=== PATIENT | male | born 1985 | race American Indian/Alaskan Native ===

== ENCOUNTER 2018-05-29 12:32 | Emergency (ER) | payer MEDICARE ==
--- NOTE | 2018-05-29 13:06 | Emergency Department Report ---
ED Laceration HPI - HPI Chief Complaint: Wound/Laceration Stated Complaint: CUT FOOT Occurred When: Today Location: Lower Extremity (left ankle) Severity: moderate Tetanus Status: Up to Date Laceration Symptoms: No Foreign Body Sensation, No Numbness, No Weakness, No Pain Other History: This is a 32-year-old -[place] male who presents with left ankle is swelling and pain from sustained injury 1 week ago. Past medical history of hypertension, congenital heart, disease, CVA, varicose veins, and defibrilator. He noticed a small wound to left ankle 1 week ago which healed with scab formation. 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 He wrapped with all to obtain a 2 stopped bleeding and was successful. Patient states he takes somewhere else well for congenital heart disease. He has been off medication for 3-4 weeks. His job called EMS who brought him over for evaluation. There is a swelling from left sal to left foot. Patient denies numbness or tingling, pain, recent injury, fever. ED Review of Systems ROS: Stated complaint: CUT FOOT Other details as noted in HPI Constitutional: denies: chills, fever Respiratory: denies: cough, shortness of breath, wheezing Cardiovascular: denies: chest pain, palpitations Gastrointestinal: denies: abdominal pain, nausea, diarrhea Skin: lesions (left ankle). 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 - Social History Smoking Status: Never Smoker Substance Use Type: None - Medications Home Medications: Home Medications Medication Instructions Recorded Confirmed Last Taken Type Sulfamethoxazole/Trimethoprim 1 each PO BID #20 tablet 05/29/18 Unknown Rx [Bactrim DS TAB] Laceration Physical Exam - Exam General: Vital signs noted. No distress. Alert and acting appropriately. Wound Length (cm): 1 (a half a centimeter) Laceration Location: Lower Extremity (left ankle) Full Body Front + Back: 1 - Half centimeter abrasion, active bleeding, surrounding cellulitis and warmth Laceration Exam: Yes Normal Distal CMS, No Foreign Body, No Exposed Tendon, Vessel, or Nerve, No Tendon Injury ED Course Vital Signs 05/29/18 12:35 Temperature 99.2 F Pulse Rate 60 Respiratory 16 Rate Blood Pressure 142/73 O2 Sat by Pulse 96 Oximetry ED Medical Decision Making - Radiology Data Radiology results: report reviewed, image reviewed VASCULAR LAB.PRELIMINARY REPORT. LLE VENOUS DUPLEX DONE. NO EVIDENCE OF DVT/SVT IN VESSELS VISUALIZED. - Medical Decision Making Patient was examined by me and Dr. Blum. Vitals are normal and patient is in no acute distress. Obtained a duplex Doppler of left lower extremity. VASCULAR LAB.PRELIMINARY REPORT. LLE VENOUS DUPLEX DONE. NO EVIDENCE OF DVT/SVT IN VESSELS VISUALIZED. Patient informed of results. There where 2 attempts to close wound via sutures that where unsuccessful. Skins is very friable. I applied Dermabond with pressure dressing. Start bactrim for cellulitis to left lower extremity. Plan discussed with patient to discharge home and treat outpatient. He agrees with ER plan. Referral to vascular surgery for further evaluation. Patient discharged home in stable condition. Follow up with PCP in 2-3 days. Critical care attestation.: If time is entered above; I have spent that time in minutes in the direct care of this critically ill patient, excluding procedure time. ED Disposition Clinical Impression: Cellulitis of left ankle Open wound of left ankle with complication Qualifiers: Encounter type: initial encounter Qualified Code(s): S91.002A - Unspecified open wound, left ankle, initial encounter Varicose vein of leg Qualifiers: Varicose vein complication: both inflammation and ulcer Laterality: left Lower extremity ulceration location: ankle Non-pressure ulcer stage: limited to breakdown of skin Qualified Code(s): I83.223 - Varicose veins of left lower extremity with both ulcer of ankle and inflammation; L97.321 - Non-pressure chronic ulcer of left ankle limited to breakdown of skin Disposition: DC-01 TO HOME OR SELFCARE Is pt being admited?: No Does the pt Need Aspirin: No Condition: Stable Instructions: Cellulitis (ED), Acute Wound Care (ED), Varicose Veins (ED) Additional Instructions: Complete full round of bactrim DS antibiotic as prescribed. Follow up with vascular surgery in 2-3 days. Return to ER if foul smelling discharge, heavy bleeding from wound, swelling, or severe pain to wound. Prescriptions: Sulfamethoxazole/Trimethoprim [Bactrim DS TAB] 1 each PO BID #20 tablet Referrals: MANOLO ALEJANDRO MD [Staff Physician] - 3-[address] [facility] [Outside] - 3-5 Days [facility] [Outside] - 3-5 Days Forms: Work/School Release Form(ED) Time of Disposition: 17:06 Print Language: PRYDEINIG
[2018-05-29] MEDS ORDERED: XYLOCAINE 2%/EPI 1:100,000 INFILTRATI ONE (14:35)
[2018-05-29] MEDS ORDERED: XYLOCAINE 1% MPF 5 mL ONE (14:38)
[2018-05-29] MEDS ORDERED: XYLOCAINE 2%/ EPI 1:200,000 INFILTRATI ONE (14:39)
[2018-05-29 17:35] VITALS: BP 133/72
--- NOTE | 2018-06-03 13:56 | Vascular Lab Report ---
LOWER EXTREMITY VENOUS DUPLEX: REASON FOR EXAM: Pain and swelling of the lower extremities. COMMENTS ON THE RIGHT: All veins visualized are freely compressible without evidence of internal echogenicity. Flow is spontaneous and phasic throughout. COMMENTS ON THE LEFT: All veins visualized are freely compressible without evidence of internal echogenicity. Flow is spontaneous and phasic throughout. The cluster varicose veins is seen near the left ankle. IMPRESSION: No evidence of acute or chronic deep venous thrombosis in either lower extremity. A cluster varicose veins are seen near the left ankle.
== END 2018-05-29 17:33 | disposition home or self-care (01) ==
LOC: ED 12:32
DX: S91.012A Laceration without foreign body, left ankle, initial encounter (principal); I83.223 Varicose veins of left lower extremity with both ulcer of ankle and inflammation; L03.116 Cellulitis of left lower limb; I10 Essential (primary) hypertension; Z86.73 Personal history of transient ischemic attack (TIA), and cerebral infarction without residual deficits; X58.XXXA Exposure to other specified factors, initial encounter; Y93.89 Activity, other specified; Y92.89 Other specified places as the place of occurrence of the external cause; Y99.8 Other external cause status
CPT/HCPCS: 99283